=== PATIENT | male | born 1960 | race Caucasian/White ===

== ENCOUNTER 2017-01-30 18:37 | Emergency (ER) | payer BC ==
[~2017-01-30] VITALS: Ht 182.9 cm; Wt 104.0 kg
[~2017-01-30 18:37] MED LIST: DARV PO; IBUP-232 PO; ROBA750T3 PO; Z.0.NO CURRENT MEDS
[2017-01-30 18:41] VITALS: BP 150/94; PULSE 76; RESP 18; TEMP 99.2; O2SAT 95
--- NOTE | 2017-01-30 18:55 | PD ---
HPI Chief Complaint: Oral / Dental Pain or Problem Time Seen by Provider: 18:55 Travel History International Travel<30 days: No Contact w/Intl Traveler<30days: No Traveled to known affect area: No History of Present Illness HPI 56-year-old male coming with left upper jaw dental pain of the #14 and 15 tooth. Pain is described as excruciating, and worse with hot and cold and even air on it. Patient has tried amoxicillin 2 days without improvement. Patient denies fever, chills, or difficulty swallowing. There is no significant swelling noted. He has no known drug allergies. PFSH Past Medical History Diminished Hearing: No Social History Alcohol Use: Yes (LIQUOR DRINKS DAILY) Tobacco Use: Yes ( APPROX 2 PPD) Substance Use: Yes Allergies-Medications (Allergen,Severity, Reaction): Coded Allergies: No Known Allergies (Verified , 01/30/17) Reported Meds & Prescriptions Reported Meds & Active Scripts Active Magic Mouthwash Adult Liq (Multi-Ingredient Mouthwash/Gargle) 120 Ml Susp 5 Ml SWISH-SWAL ACHS Each 5 mL contains: Nystatin 200,000 units, Diphenhydramine 4.25 mg, Viscous Lidocaine 10 mg, Patel syrup 0.8 mL Lortab (Hydrocodone-Acetaminophen) 5-325 Mg Tab 1-2 Tab PO Q6H PRN Cleocin (Clindamycin HCl) 150 Mg Cap 300 Mg PO Q6H 10 Days Ibuprofen 800 Mg Tab 800 Mg PO Q8H PRN Review of Systems Except as stated in HPI: all other systems reviewed are Neg General / Constitutional: No: Fever, Chills Eyes: No: Visual changes HENT: Positive: Dental Difficulties, No: Headaches, Vertigo, Lightheadedness, Sore Throat, Rhinitis, Rhinorrhea, Congestion, Neck Stiffness, Neck Pain, Ear Discharge, Earache Cardiovascular: No: Chest Pain or Discomfort Respiratory: No: Shortness of Breath Gastrointestinal: No: Abdominal Pain Genitourinary: No: Dysuria Musculoskeletal: No: Pain Skin: No Rash Neurologic: No: Weakness Psychiatric: No: Depression Endocrine: No: Polydipsia Hematologic/Lymphatic: No: Easy Bruising Physical Exam Narrative GENERAL: Patient is in moderate distress. SKIN: Warm and dry. Normal color. Normal turgor. No rash. HEAD: Atraumatic. Normocephalic. EYES: Pupils equal and round. No scleral icterus. No injection or drainage. ENT: No nasal bleeding or discharge. Mucous membranes pink and moist. Patient has poor dental condition with caries present and tenderness to the #14/15 teeth without obvious abscess. Pharynx is unremarkable. Airway is patent. No significant lymphadenopathy or exudate. NECK: Trachea midline. Supple and nontender without significant lymphadenopathy. CARDIOVASCULAR: Regular rate and rhythm. RESPIRATORY: No accessory muscle use. Clear to auscultation. Breath sounds equal bilaterally. MUSCULOSKELETAL: Extremities without clubbing, cyanosis, or edema. No obvious deformities. NEUROLOGICAL: Awake and alert. No obvious cranial nerve deficits. Motor grossly within normal limits. Five out of 5 muscle strength in the arms and legs. Normal speech. PSYCHIATRIC: Appropriate mood and affect; insight and judgment normal. Data Data Last Documented VS Vital Signs Date Time Temp Pulse Resp B/P Pulse Ox O2 Delivery O2 Flow Rate FiO2 01/30/17 18:41 99.2 76 18 150/94 95 Orders Acetamin-Hydrocod 325-5 Mg ([place] 5-325 (01/30/17 19:00) Ketorolac Inj (Toradol Inj) (01/30/17 19:00) Heaj-Xivy-Ocmd Liq (Magic Mouthwash Adul (01/30/17 19:00) Clindamycin (Cleocin) (01/30/17 19:00) MDM Medical Decision Making Medical Screen Exam Complete: Yes Emergency Medical Condition: Yes Differential Diagnosis Dental pain. Dental abscess. Dental caries. Narrative Course Patient is medically stable at time of exam. Patient is given Lortab 5/325 by mouth. Patient is given 60 mg Toradol IM. Patient is given Magic mouthwash orally 10 mL swish and spit 1. Patient is given clindamycin 450 mg by mouth 1. Patient had mild improvement from the above treatment. Patient is stable to be discharged home. Patient is given a prescription for clindamycin 3 mg 3 times a day 10 days. Patient is given a prescription for ibuprofen 800 mg 3 times daily with food # 30. Patient is given a prescription for Magic mouthwash 5-10 mg every 2 hours when necessary dental pain. 120 mL's. Patient is given Lortab 5/325 one to 2 every 6 hours when necessary pain #20. Patient is to follow-up with a dentist as soon as possible for further treatment. Diagnosis Primary Impression: Dental abscess Referrals: Dentist Patient Instructions: Narcotic given in the ED, General Instructions Additional Instructions: Patient is stable to be discharged home. Patient is given a prescription for clindamycin 3 mg 3 times a day 10 days. Patient is given a prescription for ibuprofen 800 mg 3 times daily with food # 30. Patient is given a prescription for Magic mouthwash 5-10 mg every 2 hours when necessary dental pain. 120 mL's. Patient is given Lortab 5/325 one to 2 every 6 hours when necessary pain #20. Patient is to follow-up with a dentist as soon as possible for further treatment. Scripts Cjlorsuu-Klsduynovlzfkjm-Fmrwgzjsi Liq (Magic Mouthwash Adult Liq)120 Ml Susp5 Ml SWISH-SWAL ACHS #120 ML Each 5 mL contains: Nystatin 200,000 units, Diphenhydramine 4.25 mg, Viscous Lidocaine 10 mg, Patel syrup 0.8 mL Prov:Ish Horne MD 01/30/17 Hydrocodone-Acetaminophen (Lortab)5-325 Mg Tab1-2 Tab PO Q6H PRN (PAIN) #20 TAB Prov:Ish Horne MD 01/30/17 Clindamycin (Cleocin)150 Mg [id number] Mg PO Q6H 10 Days Prov:Ish Horne MD 01/30/17 Ibuprofen 800 Mg [id number] Mg PO Q8H PRN (Pain/Inflammation) #30 TAB Prov:Ish Horne MD 01/30/17 Disposition: 01 DISCHARGE HOME Condition: Stable Avel Hamlin Jan 30, 2017 18:55
[2017-01-30] MEDS ORDERED: CLINDAMYCIN 150 MG CAP PO ONE (19:00)
[2017-01-30] MEDS ORDERED: ACETAMINOPHEN/HYDROcodone 325 MG/5 MG TAB PO ONE (19:00)
[2017-01-30] MEDS ORDERED: NYSTAT/DIPHENHY/LIDO MOUTHWASH (Adult) 120ML SWISH-SWAL ONE (19:00)
[2017-01-30] MEDS ORDERED: KETOROLAC TROMETHAMINE 60 MG/2 ML (IM) VIAL IM ONE (19:00)
[2017-01-30] MEDS ORDERED: CLIN150 PO (19:29)
[2017-01-30] MEDS ORDERED: MAGICADU2 SWISH-SWAL (19:29)
[2017-01-30] MEDS ORDERED: IBUP800T23 PO (19:29)
[2017-01-30] MEDS ORDERED: HYDR-3533 PO (19:29)
[2017-01-30] MEDS ORDERED: PRED20 PO (19:42)
[2017-01-30] MEDS ORDERED: VENTAER INH (19:42)
[2017-01-30] MEDS ORDERED: FLUT1SPR9 EACH NARE (19:42)
[2017-01-30] MEDS ORDERED: BACT800T5 PO (19:42)
[2017-01-30] MEDS ORDERED: GUAI1SOL3 PO (19:42)
== END 2017-01-30 19:42 | disposition home or self-care (01) ==
LOC: PHEFT 18:37
DX: K04.7 Periapical abscess without sinus (principal); F10.20 Alcohol dependence, uncomplicated; F17.210 Nicotine dependence, cigarettes, uncomplicated
CPT/HCPCS: 96372; 99282; J1885

== ENCOUNTER 2017-04-18 15:50 | Emergency (ER) | payer BC, OTHER ==
[~2017-04-18] VITALS: Ht 182.9 cm; Wt 102.0 kg
[~2017-04-18 15:50] MED LIST changes: +CLIN150 PO; -DARV PO; +HYDR-3533 PO; -IBUP-232 PO; +IBUP800T23 PO; +MAGICADU2 SWISH-SWAL; -ROBA750T3 PO; -Z.0.NO CURRENT MEDS
[2017-04-18 16:08] VITALS: BP 130/88; PULSE 93; RESP 17; TEMP 98.1; O2SAT 96
[2017-04-18] MEDS ORDERED: CLINDAMYCIN INJ 600 MG in SODIUM CHLORIDE 0.9% INJ 100 ML IV ONE (17:00)
[2017-04-18 17:33] LABS: AUTOMATED NEUTROPHIL # 4.6 TH/MM3 (1.8-7.7); BASOPHIL # 0.1 TH/MM3 (0-0.2); EOSINOPHIL # 0.1 TH/MM3 (0-0.4); EOSINOPHIL % 1.9 % (0.0-4.0); HEMATOCRIT 45.7 % (39.0-51.0); LYMPH % 24.1 % (9.0-44.0); LYMPHOCYTE # 1.6 TH/MM3 (1.0-4.8); MEAN CORPUSCULAR HEMOGLOBIN 29.2 PG (27.0-34.0); MEAN CORPUSCULAR HGB CONC 33.5 % (32.0-36.0); MONO % 6.4 % (0.0-8.0); NEUT % 66.6 % (16.0-70.0); PLATELET COUNT 270 TH/MM3 (150-450); RED BLOOD COUNT 5.25 MIL/MM3 (4.50-5.90); RED CELL DISTRIBUTION WIDTH 13.9 % (11.6-17.2); WHITE BLOOD COUNT 6.8 TH/MM3 (4.0-11.0)
[2017-04-18 17:43] LABS: CHLORIDE 108 MEQ/L (98-107); SODIUM (NA) 143 MEQ/L (136-145)
--- NOTE | 2017-04-18 17:45 | PD ---
HPI Chief Complaint: Laceration/Skin Injury Time Seen by Provider: 16:59 Travel History International Travel<30 days: No Contact w/Intl Traveler<30days: No Traveled to known affect area: No History of Present Illness HPI Patient is a 56 year old male who comes in due to swelling of his left elbow. He sustained a laceration to the elbow 1 week ago from a snag grinder at work. He did not seek medical attention at the time and has just bandaged it and kept it clean. He says today he noticed his elbow was swollen so he came in. He is not really having pain to the area. He has not noticed oozing from the area. He has not had any fever or chills. He says his last tetanus vaccine was in the past few years. PFS Past Medical History Medical History: Denies Significant Hx Diminished Hearing: No Tetanus Vaccination: < 5 Years Influenza Vaccination: No ?: Not Social History Alcohol Use: Yes (WHISKEY 7-8 DRINKS DAILY; 1 MIXED DRINK TODAY (04/18/17)) Tobacco Use: Yes (1.5 PPD) Substance Use: Yes (MARIJUANA DAILY) Allergies-Medications (Allergen,Severity, Reaction): Coded Allergies: No Known Allergies (Verified , 04/18/17) Reported Meds & Prescriptions Reported Meds & Active Scripts Active Clindamycin (Clindamycin HCl) 300 Mg Cap 600 Mg PO Q8H 7 Days Review of Systems Except as stated in HPI: all other systems reviewed are Neg HENT: No: Headaches, Lightheadedness Cardiovascular: No: Chest Pain or Discomfort Respiratory: No: Shortness of Breath Gastrointestinal: No: Nausea, Vomiting Musculoskeletal: Positive: Edema, No: Arthralgias, Limited ROM Skin: Positive Other (laceration), No Rash Neurologic: No: Weakness, Dizziness Physical Exam Narrative GENERAL: Awake and alert, in no acute distress. SKIN: Focused skin assessment warm/dry. To 3 cm linear lacerations just distal to the left elbow. Wounds are dry, there is no surrounding erythema, no leakage of pus. HEAD: Atraumatic. Normocephalic. EYES: Pupils equal and round. No scleral icterus. ENT: Mucous membranes pink and moist. NECK: Trachea midline. No JVD. CARDIOVASCULAR: Regular rate and rhythm. No murmur appreciated. RESPIRATORY: No accessory muscle use. Clear to auscultation. Breath sounds equal bilaterally. MUSCULOSKELETAL: No obvious deformities. No clubbing. No cyanosis. Large fluid filled olecranon bursa of the left elbow. No erythema over the left elbow joint. No pain with movement of the elbow. Radial pulse intact. NEUROLOGICAL: Awake and alert. No obvious cranial nerve deficits. Motor grossly within normal limits. Normal speech. PSYCHIATRIC: Appropriate mood and affect; insight and judgment normal. Data Data Last Documented VS Vital Signs Date Time Temp Pulse Resp B/P Pulse Ox O2 Delivery O2 Flow Rate FiO2 04/18/17 17:58 84 16 144/84 97 Room Air 04/18/17 16:08 98.1 Orders Complete Blood Count With Diff (04/18/17 17:00) Comprehensive Metabolic Panel (04/18/17 17:00) [place] Sedimentation Rate (04/18/17 17:00) C-Reactive Protein (Crp) (04/18/17 17:00) Ct Elbow W Iv Contrast (04/18/17 ) Clindamycin Inj (Cleocin Inj) (04/18/17 17:00) Iohexol 350 Inj (Omnipaque 350 Inj) (04/18/17 18:51) Labs Laboratory Tests Test 04/18/17 17:20 White Blood Count 6.8 TH/MM3 Red Blood Count 5.25 MIL/MM3 Hemoglobin 15.3 GM/DL Hematocrit 45.7 % Mean Corpuscular Volume 87.0 FL Mean Corpuscular Hemoglobin 29.2 PG Mean Corpuscular Hemoglobin 33.5 % Concent Red Cell Distribution Width 13.9 % Platelet Count 270 TH/MM3 Mean Platelet Volume 7.4 FL Neutrophils (%) (Auto) 66.6 % Lymphocytes (%) (Auto) 24.1 % Monocytes (%) (Auto) 6.4 % Eosinophils (%) (Auto) 1.9 % Basophils (%) (Auto) 1.0 % Neutrophils # (Auto) 4.6 TH/MM3 Lymphocytes # (Auto) 1.6 TH/MM3 Monocytes # (Auto) 0.4 TH/MM3 Eosinophils # (Auto) 0.1 TH/MM3 Basophils # (Auto) 0.1 TH/MM3 CBC Comment DIFF FINAL Differential Comment Erythrocyte Sedimentation Rate 4 mm/hr Sodium Level 143 MEQ/L Potassium Level 4.0 MEQ/L Chloride Level 108 MEQ/L Carbon Dioxide Level 25.7 MEQ/L Anion Gap 9 MEQ/L Blood Urea Nitrogen 16 MG/DL Creatinine 1.20 MG/DL Estimat Glomerular Filtration 63 ML/MIN Rate Random Glucose 84 MG/DL Calcium Level 9.0 MG/DL Total Bilirubin 0.4 MG/DL Aspartate Amino Transf 16 U/L (AST/SGOT) Alanine Aminotransferase 34 U/L (ALT/SGPT) Alkaline Phosphatase 67 U/L C-Reactive Protein 2.60 MG/DL Total Protein 7.6 GM/DL Albumin 3.7 GM/DL [facility] Medical Decision Making Medical Screen Exam Complete: Yes Emergency Medical Condition: Yes Medical Record Reviewed: Yes Differential Diagnosis Cellulitis versus abscess versus bursitis Narrative Course Patient is a 56-year-old male comes in complaining of swelling to his left elbow. Exam shows fluctuant at the left olecranon bursa. IV established, labs sent. CRP is elevated, all other labs are within normal limits. Given a dose of clindamycin. CT of the elbow shows a fluid collection. This was aspirated with needle. Patient discharge with prescription for clindamycin. Advised to keep his wounds clean and dry. Advised to put pressure dressing on his elbow. Advised to return to the ED as needed for any worsening symptoms. Procedures Procedure Narrative Elbow sterilely prepped and draped. 20-gauge needle inserted into the area of fluctuance. 8 cc of orange fluid drained. Dressing applied. Patient tolerated the procedure well. Diagnosis Primary Impression: Cellulitis Qualified Code: L03.114 - Cellulitis of left upper extremity Patient Instructions: Cellulitis (ED), Elbow Bursitis (ED), General Instructions Additional Instructions: Keep your wound clean and dry. Apply pressure to your elbow. Take all of your antibiotics. Return to the ED as needed for any worsening symptoms. Scripts Clindamycin 300 Mg [id number] Mg PO Q8H 7 Days Ref 0 Prov:Sandra Kelly MD 04/18/17 Disposition: 01 DISCHARGE HOME Condition: Stable Sandra Kelly MD April 18, 2017 17:45
[2017-04-18 17:48] LABS: ANION GAP 9 MEQ/L (5-15); BICARBONATE 25.7 MEQ/L (21.0-32.0); BLOOD UREA NITROGEN 16 MG/DL (7-18)
[2017-04-18 17:51] LABS: ALT (GPT) 34 U/L (12-78); AST (GOT) 16 U/L (15-37); GLOMERULAR FILTRATION RATE 63 ML/MIN (>89); HEMO FLAGS DIFF FINAL
[2017-04-18 17:53] LABS: TOTAL BILIRUBIN ADULT 0.4 MG/DL (0.2-1.0)
[2017-04-18 17:54] LABS: ALKALINE PHOSPHATASE 67 U/L (45-117)
[2017-04-18 17:58] VITALS: BP 144/84; PULSE 84; RESP 16; O2SAT 97
[2017-04-18] MEDS ORDERED: IOHEXOL 350 MG/ML 10 ML VIAL (for RAD DIAG) IV ONE (18:51)
--- NOTE | 2017-04-18 19:19 | RADHPO ---
EXAM DATE/TIME: 04/18/2017 18:33 [facility] COMPARISON: No previous studies available for comparison. INDICATIONS : Laceration to left arm. Discharge and swelling. IV CONTRAST: 75 cc Omnipaque 350 (iohexol) IV RADIATION DOSE: 15.01 CTDIvol (mGy) MEDICAL HISTORY : None SURGICAL HISTORY : None. ENCOUNTER: Initial ACUITY: 4 - 6 days PAIN SCALE: 6/10 LOCATION: Left posterior forearm TECHNIQUE: Volumetric scanning of the elbow was performed. Using automated exposure control and adjustment of t he mA and/or kV according to patient size, radiation dose was kept as low as reasonably achievable to obtain optimal diagnostic quality images. FINDINGS: There are no fractures identified. Examination demonstrates at the proximal forearm dorsally extensiv e subcutaneous fat stranding, overlying skin thickening, and posterior to the olecranon, a rim-enhanc ing fluid collection is identified measuring 4.0 x 1.8 cm in transverse and AP dimension on axial halima ge 28 and extending 6.1 cm in cephalocaudal dimension on sagittal image 35. There is a laceration aisha ntified proximal forearm posteriorly containing a small punctate radiodensity measuring 3.6 mm, best seen on sagittal image 35 and coronal image 58. The fluid collection is noted proximal CONCLUSION: Rim-enhancing fluid collection posterior to the olecranon likely representing an infected olecranon b ursitis/abscess. Extensive subcutaneous stranding/edema and skin thickening consistent with celluliti s. Laceration as above. Kameron Lozoya MD on April 18, 2017 at 19:14 Board Certified Radiologist. This report was verified electronically.
[2017-04-18] MEDS ORDERED: CLIN1CAP6 PO (19:43)
== END 2017-04-18 19:48 | disposition home or self-care (01) ==
LOC: PHEFT 15:50
DX: L03.114 Cellulitis of left upper limb (principal); F17.200 Nicotine dependence, unspecified, uncomplicated
CPT/HCPCS: 20605; 73201; 80053; 85025; 85652; 86140; 96365; 99285; Q9967